=== PATIENT | female | born 1955 | race Caucasian/White ===

== ENCOUNTER 2021-11-05 16:31 | Emergency (ER) | payer OTHER ==
[~2021-11-05] VITALS: Ht 172.7 cm; Wt 68.0 kg
--- NOTE | 2021-11-05 17:05 | NUR ---
ZULLY THIS 66YO/F VIA WHEELCHAIR WITH CC OF BILATERAL ARM SWELLING X2 DAYS. PATIENT HAS HX OF MS. VITALS CHECKED. PLACED IN ROOM 3.
--- NOTE | 2021-11-05 17:25 | NUR ---
SEE BY DR CALLAHAN AT BEDSIDE
--- NOTE | 2021-11-05 17:49 | NUR ---
XRAY DONE AT BEDSIDE
--- NOTE | 2021-11-05 18:25 | NUR ---
DOPPLER TELMA OF UPPER ARMS DONE AT BEDSIDE
--- NOTE | 2021-11-05 18:48 | NUR ---
PATIENT AND REFUSED BLOOD DRAW. DR CALLAHAN MADE AWARE.
[2021-11-05] MEDS ORDERED: FURO-144 PO (18:56)
--- NOTE | 2021-11-05 19:27 | NUR ---
Patient discharged to home in stable condition. Written and verbal after care instructions given. Patient verbalizes understanding of instruction.
[2021-11-05 19:28] VITALS: BP 112/64
== END 2021-11-05 19:29 | disposition home or self-care (01) ==
LOC: ER 16:31
DX: M79.89 Other specified soft tissue disorders (principal); G35 Multiple sclerosis; Z79.899 Other long term (current) drug therapy
CPT/HCPCS: 73000-TC; 73030-TC; 93971-TC

== ENCOUNTER 2021-12-07 16:55 | Emergency (ER) | payer OTHER ==
[~2021-12-07] VITALS: Ht 172.7 cm; Wt 68.0 kg
[~2021-12-07 16:55] MED LIST: FURO-144 PO
[2021-12-07 17:22] VITALS: BP 111/69
--- NOTE | 2021-12-07 17:54 | NUR ---
ER BED 6 PALM RASH X4DAYS. NO PAIN. NO SOB
[2021-12-07] MEDS ORDERED: HYDR28.32 TP (18:08)
--- NOTE | 2021-12-07 18:12 | NUR ---
Patient discharged to home in stable condition. Written and verbal after care instructions given. Patient verbalizes understanding of instruction.
== END 2021-12-07 18:20 | disposition home or self-care (01) ==
LOC: ER 16:58
DX: L30.9 Dermatitis, unspecified (principal); Z87.39 Personal history of other diseases of the musculoskeletal system and connective tissue; Z79.899 Other long term (current) drug therapy